=== PATIENT | male | born 1965 ===

== ENCOUNTER 2024-12-12 11:15 | Inpatient (IN) | payer OTHER ==
[~2024-12-12] VITALS: Ht 30.5 cm; Wt 107.5 kg
[2024-12-12] MEDS ORDERED: GLUMETZA1000 MG PO (13:27)
[2024-12-12] MEDS ORDERED: GLIPIZIDE XL10 MG PO (13:28)
[2024-12-12] MEDS ORDERED: NORVASC2.5 M1 PO (13:29)
[2024-12-17] MEDS ORDERED: CEFTRIAXONE SODIUM 2,000 MG VIAL ONE (15:09)
[2024-12-17] MEDS ORDERED: METRONIDAZOLE/SODIUM CHLORIDE 500 MG/100 ML PIGGYBACK IV ONE (15:10)
[2024-12-17] MEDS ORDERED: CHLORHEXIDINE GLUCONATE 120 ML BOTTLE TOP ONE (15:40)
[2024-12-17] MEDS ORDERED: hydrALAZINE HCL 20 MG VIAL ONE (17:02)
[2024-12-17] MEDS ORDERED: BUPIVACAINE HCL 30 ML VIAL IJ ONE (17:30)
[2024-12-17] MEDS ORDERED: LIDOCAINE HCL 1%/EPINEPHRINE 20ML VIAL IJ ONE (17:30)
[2024-12-17] MEDS ORDERED: SUGAMMADEX SODIUM 200 MG/2 ML VIAL IV ONE (17:45)
[2024-12-17] MEDS ORDERED: ONDANSETRON HCL 2 MG/ML VIAL IV PRN (18:00)
[2024-12-17] MEDS ORDERED: MORPHINE SULFATE 4 MG/ML CARTRIDGE IV PRN (18:00)
[2024-12-17] MEDS ORDERED: OxyCODONE HCL 5 MG TABLET (ROXICODONE) PO PRN (18:00)
[2024-12-17] MEDS ORDERED: RINGERS SOLUTION,LACTATED 1,000 ML IV SCH (18:00)
[2024-12-17] MEDS ORDERED: MORPHINE SULFATE 4 MG/ML VIAL IV ONE ×2 (19:45→21:00)
[2024-12-17] MEDS ORDERED: ACETAMINOPHEN 500 MG GEL..CAP PO SCH (20:00)
[2024-12-17] MEDS ORDERED: FAMOTIDINE/PF 20 MG/2 ML VIAL IV PUSH SCH (21:00)
[2024-12-17] MEDS ORDERED: SIMETHICONE 125 MG CAPSULE PO SCH (21:00)
[2024-12-17] MEDS ORDERED: FAMOTIDINE/PF 20 MG/2 ML VIAL ONE (21:01)
[2024-12-18] VITALS (7 sets, daily range): BP systolic 170–181; BP diastolic 90–96; O2SAT 90–98
[2024-12-18] MEDS ORDERED: METOCLOPRAMIDE HCL 5 MG/ML VIAL IV SCH (01:00)
[2024-12-18] MEDS ORDERED: ENALAPRILAT DIHYDRATE 1.25 MG/ML VIAL IV PRN (01:00)
[2024-12-18] MEDS ORDERED: GABAPENTIN 300 MG CAPSULE PO SCH ×2 (01:00→21:00)
[2024-12-18] MEDS ORDERED: CELECOXIB 200 MG CAPSULE PO SCH (05:00)
[2024-12-18 06:46] LABS: HEMATOCRIT 49.6 % (39.0-48.0); HEMOGLOBIN 16.8 g/dL (13-16.00); MEAN CELL VOLUME 97.9 fL (80.0-100.00); MEAN CORPUSCULAR HEMOGLOBIN 33.1 pg (27.00-32.0); MEAN CORPUSCULAR HGB CONC 33.8 g/dl (32.0-36.0); PLATELET COUNT 216 K/uL (150-450); RED BLOOD COUNT 5.07 M/uL (4.00-6.00); RED CELL DISTRIBUTION WIDTH 15.1 % (11.5-14.5)
[2024-12-18 07:07] LABS: ALBUMIN 2.8 gm/dL (3.4-5.0); CALCIUM 8.7 mg/dL (8.5-10.1); CREATININE SERUM 1.08 mg/dL (0.70-1.30); GFR 70.73; MAGNESIUM 1.6 mg/dL (1.8-2.4); PHOSPHOROUS 2.9 mg/dL (2.5-4.9); POTASSIUM 3.52 mEq/L (3.5-5.1)
[2024-12-18] MEDS ORDERED: HYOSCYAMINE SULFATE 0.125 MG TAB.SUBL SL SCH (09:00)
[2024-12-18] MEDS ORDERED: LACTOBACILLUS ACIDOPHILUS 1 CAP CAP PO SCH (09:00)
[2024-12-18] MEDS ORDERED: LACTULOSE 20 G/30 ML BLIST.PACK PO SCH (09:00)
[2024-12-18] MEDS ORDERED: LOSARTAN POTASSIUM 25 MG TABLET PO STA (09:47)
[2024-12-18] MEDS ORDERED: AMLODIPINE BESYLATE 2.5 MG TABLET PO STA (09:48)
[2024-12-18] MEDS ORDERED: DEXTROSE 50 % IN WATER 0.5 G/ML DISP.SYRIN IV PRN (10:00)
[2024-12-18] MEDS ORDERED: MAGNESIUM SULFATE IN WATER 50 ML IV NR (10:00)
[2024-12-18] MEDS ORDERED: INSULIN LISPRO 1,000 UNIT/10 ML UNITS SUBCUTANEO PRN (10:00)
[2024-12-18] MEDS ORDERED: MORPHINE SULFATE 2 MG/ML CARTRIDGE IV PRN (11:59)
[2024-12-18 12:08] LABS: ABG PH 7.457 (7.35-7.45); ABG PO2 71.3 mmHg (80-100); ABG pCO2 37.6 mmHg (35-45); BASE EXCESS 2.3 mmol/l; SaO2 95.1 %; Tco2 27.1 mmol/l; allen test SATISFACTORY; o2 21 %; puncture site RADIAL LEFT
[2024-12-18] MEDS ORDERED: ENOXAPARIN SODIUM 40 MG/0.4 ML SYRINGE SUBCUTANEO SCH (17:00)
[2024-12-18] MEDS ORDERED: POLYETHYLENE GLYCOL 3350 17 GM BLIST.PACK PO SCH (17:00)
[2024-12-18] MEDS ORDERED: GABAPENTIN 100 MG CAPSULE PO SCH (17:00)
[2024-12-19] VITALS (8 sets, daily range): BP systolic 160–166; BP diastolic 86–97; O2SAT 90–98
[2024-12-19 06:58] LABS: HEMATOCRIT 47.3 % (39.0-48.0); MEAN CELL VOLUME 97.3 fL (80.0-100.00); MEAN CORPUSCULAR HEMOGLOBIN 32.9 pg (27.00-32.0); MEAN CORPUSCULAR HGB CONC 33.9 g/dl (32.0-36.0); PLATELET COUNT 157 K/uL (150-450); RED BLOOD COUNT 4.86 M/uL (4.00-6.00); RED CELL DISTRIBUTION WIDTH 14.7 % (11.5-14.5)
[2024-12-19 07:41] LABS: CALCIUM 8.4 mg/dL (8.5-10.1); CREATININE SERUM 0.97 mg/dL (0.70-1.30); GFR 80.06; MAGNESIUM 2.2 mg/dL (1.8-2.4); PHOSPHOROUS 2.2 mg/dL (2.5-4.9); POTASSIUM 3.21 mEq/L (3.5-5.1)
[2024-12-19] MEDS ORDERED: ENOXAPARIN SODIUM 40 MG/0.4 ML SYRINGE SUBCUTANEO SCH (09:00)
[2024-12-19] MEDS ORDERED: LOSARTAN POTASSIUM 25 MG TABLET PO SCH (09:00)
[2024-12-19] MEDS ORDERED: AMLODIPINE BESYLATE 2.5 MG TABLET PO SCH (09:00)
[2024-12-19] MEDS ORDERED: POTASSIUM PHOS,M-BASIC-D-BASIC 3 MM/ML VIAL IV NR (10:45)
[2024-12-19] MEDS ORDERED: POTASSIUM CHLORIDE 20MEQ/100ML H2O PB IV NR (10:45)
[2024-12-20 01:00] VITALS: O2SAT 96
[2024-12-20 01:31] VITALS: BP 153/70; O2SAT 97
[2024-12-20 08:00] VITALS: BP 180/90; O2SAT 98
[2024-12-20 10:00] VITALS: O2SAT 96
== END 2024-12-20 14:21 | disposition home or self-care (01) | DRG 330 ==
LOC: SURH 12-17 10:45 → O/R 12-17 15:04 → SURG 12-17 15:04
PROVIDERS: Internal Medicine Geriatric Medicine; ADMIT Colon & Rectal Surgery; ATTEND Colon & Rectal Surgery
PROC: 0DBP4ZZ Excision of Rectum, Percutaneous Endoscopic Approach (ICD-10-PCS; 2024-12-17)
PROC: 0DTN4ZZ Resection of Sigmoid Colon, Percutaneous Endoscopic Approach (ICD-10-PCS; 2024-12-17)
PROC: 0WQF4ZZ Repair Abdominal Wall, Percutaneous Endoscopic Approach (ICD-10-PCS; 2024-12-17)
PROC: 0DBB4ZZ Excision of Ileum, Percutaneous Endoscopic Approach (ICD-10-PCS; principal; 2024-12-17 10:45)
PROC: 4A12X4Z Monitoring of Cardiac Electrical Activity, External Approach (ICD-10-PCS; 2024-12-18)
DX: K57.20 Diverticulitis of large intestine with perforation and abscess without bleeding (principal); K92.1 Melena